=== PATIENT | male | born 1980 | race Caucasian/White ===

== ENCOUNTER → 2020-05-13 | Outpatient (CLI) | payer OTHER ==
[~2020-05-13] MED LIST: AMOX500 PO; CEPH500 PO; CYCL10 PO; HYDACE5 PO; IBUP600 PO; OXYACE5T PO; RXCYCL10 PO; RXHYDACE PO; SULTRISS PO
== END | disposition home or self-care (01) ==
LOC: LAB SHORT 14:15 → LAB EV 14:15
DX: L03.113 Cellulitis of right upper limb (principal)
CPT/HCPCS: 87070; 87075; 87077; 87147; 87186; 87205